=== PATIENT | female | born 1960 | race Caucasian/White ===

== ENCOUNTER 2018-09-24 15:17 | Inpatient (IN) | payer OTHER ==
[2018-09-24 18:04] VITALS: BMI 28.3
--- NOTE | 2018-09-24 18:49 | HP ---
CIWA Score Nausea/Vomitin-No Nausea/No Vomiting Muscle Tremors: 3 Anxiety: 6 Agitation: 4-Moderately Restless Paroxysmal Sweats: No Perspiration Orientation: 1-Uncertain about Date Tacttile Disturbances: 0-None Auditory Disturbances: 0-None Visual Disturbances: 3-Moderate Sensitivity Headache: 3-Moderate CIWA-Ar Total Score: 20 - Admission Criteria OASAS Guidelines: Admission for Medically Managed Detox: Requires at least one of the followin. CIWA greater than 12 2. Seizures within the past 24 hours 3. Delirium tremens within the past 24 hours 4. Hallucinations within the past 24 hours 5. Acute intervention needed for co occurring medical disorder 6. Acute intervention needed for co occurring psychiatric disorder 7. Severe withdrawal that cannot be handled at a lower level of care (continued vomiting, continued diarrhea, abnormal vital signs) requiring intravenous medication and/or fluids 8. Patient presents the following: CIWA greater than 12 Admission Criteria Met: Admission criteria met Admission ROS [facility] - [facility] Allergies/Adverse Reactions: Allergies Allergy/AdvReac Type Severity Reaction Status Date / Time No Known Allergies Allergy Verified 09/24/18 19:08 History of Present Illness: patient here for etoh detox , poor historian due to intoxication , JADEN 0.314 , reports that she had " a "mini-stroke " 2 years ago 2/2 HTN " my doctor won't give me medicine because he doesn't think I have high blood pressure " , reprots she tried to go to [facility] for assistance and was turned down , reports homelessness x 10 years, moved from [facility] to [place] 3 years ago in order to help care for her father . Patient reports PTSD does not wish to discuss further , states she has 2 children , " one is buried in [facility] and one is here , she's having a baby in October " Patient reports she was at [facility] psychiatric mann x 2 days , cannot specify when . Currently denies SI / HI / plan . Reports spinal stenosis , seasonal allergies . JADEN 0.200 does not recall having ABC done prior ( 0.314 at time of registration ) patient refused to answer further questions states " why am I sitting here ?" and went out of office after assessment. Exam Limitations: Clinical Condition, Intoxication, Altered Mental Status - Ebola screening Have you traveled outside of the country in the last 21 days: No Have you had contact with anyone from an Ebola affected area: No Have you been sick,other than usual withdrawal symptoms: No Do you have a fever: No - Review of Systems Constitutional: See HPI EENT: reports: Blurred Vision, Other (reading glasses , denies dysphagia) Respiratory: reports: Cough, Other (reports allergies) Cardiac: reports: No Symptoms Reported GI: reports: No Symptoms Reported : reports: No Symptoms Reported Musculoskeletal: reports: Back Pain Integumentary: reports: No Symptoms Reported Neuro: reports: See HPI Endocrine: reports: No Symptoms Reported Psychiatric: reports: Orientated x3, Agitated, Anxious Patient History - Smoking Cessation Smoking history: Unknown if ever smoked Initiated information on smoking cessation: No - Substances Abused Alcohol Route: Oral Frequency: Daily Amount used: LIQUOR- 1 PINT Age of first use: 19 Date of Last Use: 09/24/18 Family Disease History - Family Disease History Family Disease History: Diabetes: Mother (maternal side ), CA: Mother, Other: Father (emphysema, copd ), Sister (2 sisters " who cares , they're idiots" ) Admission Physical Exam [facility] - Vital Signs Vital Signs: Vital Signs - 24 hr 09/24/18 18:02 Temperature 98.6 F Pulse Rate 88 Respiratory 18 Rate Blood Pressure 122/76 - Physical General Appearance: Yes: Disheveled, Severe Distress, Alcohol on Breath, Intoxicated, Tremorous, Irritable, Anxious HEENTM: Yes: EOMI, Normocephalic, Normal Voice Respiratory: Yes: Chest Non-Tender, Lungs Clear, Normal Breath Sounds Neck: Yes: No masses,lesions,Nodules, Trachea in good position Breast: Yes: Breast Exam Deferred Cardiology: Yes: Regular Rhythm, Regular Rate, S1, S2 Abdominal: Yes: Non Tender, Soft Genitourinary: Yes: Within Normal Limits Musculoskeletal: Yes: Other (staggering gait) Extremities: Yes: Tremors Neurological: Yes: Confused, Disoriented, Depressed Affect Integumentary: Yes: Erythema - Diagnostic (1) Alcohol intoxication Current Visit: Yes Status: Acute Qualifiers: Complication of substance-induced condition: with unspecified complication Qualified Code(s): F10.929 - Alcohol use, unspecified with intoxication, unspecified S Breath Alcohol Content Breath Alcohol Content: 0.314 Urine Drug Screen - Results Drug Screen Negative: Yes
[2018-09-24] MEDS ORDERED: chlordiazePOXIDE HCL 25 MG CAPSULE PO PRN ×2 (19:23→21:41)
[2018-09-24] MEDS ORDERED: MAG HYDROX/AL HYDROX/SIMETH 30 ML UNIT-DOSE CUP PO PRN (19:24)
[2018-09-24] MEDS ORDERED: guaiFENesin/D-METHORPHAN HB 10 ML UNIT-DOSE CUPS PO PRN (19:24)
[2018-09-24] MEDS ORDERED: MAGNESIUM HYDROX 2400MG/30ML ORAL SUSPENSION 30 ML CUP PO PRN (19:24)
[2018-09-24] MEDS ORDERED: MAGNESIUM CITRATE 300 ML BOTTLE PO PRN (19:24)
[2018-09-24] MEDS ORDERED: P-EPHED 60MG/TRIPROLIDI 2.5MG TABLET PO PRN (19:24)
[2018-09-24] MEDS ORDERED: ACETAMINOPHEN 325 MG TABLET (FP) PO PRN (19:24)
[2018-09-24] MEDS ORDERED: MENTHOL/PHENOL 1 EACH UD MM PRN (19:24)
[2018-09-24] MEDS ORDERED: IBUPROFEN 400 MG TABLET (FP) PO PRN (19:24)
[2018-09-24] MEDS ORDERED: MELATONIN 5 MG TABLETS PO PRN (22:00)
[2018-09-24] MEDS: chlordiazePOXIDE HCL 25 MG CAPSULE PO SCH (22:19)
[2018-09-24] MEDS: THIAMINE HCL 100 MG TABLET (FP) PO SCH (22:23)
[2018-09-24] MEDS ORDERED: chlordiazePOXIDE HCL 25 MG CAPSULE PO SCH (23:00)
[2018-09-25] MEDS: chlordiazePOXIDE HCL 25 MG CAPSULE PO SCH ×4 (06:15→22:32)
[2018-09-25] MEDS: PRENATAL VITAMINS W/ FOLIC ACID TABLET (FP) PO SCH (10:37)
[2018-09-25] MEDS: ASPIRIN 81 MG CHEWABLE TABLETS PO SCH (13:32)
[2018-09-25] MEDS: NICOTINE 14 MG/24 HOURS TOPICAL PATCH TD SCH (13:32)
--- NOTE | 2018-09-25 16:10 | PN ---
S CIWA - CIWA Score Nausea/Vomitin-No Nausea/No Vomiting Muscle Tremors: None Anxiety: 5 Agitation: 2 Paroxysmal Sweats: No Perspiration Orientation: 4Disoriented Place/Person Tacttile Disturbances: 2-Mild Itch/Numbness/Burn Auditory Disturbances: 0-None Visual Disturbances: 2-Mild Sensitivity Headache: 0-None Present CIWA-Ar Total Score: 15 BHS Progress Note (SOAP) Subjective: Anxious, Body Aches. Objective: PATIENT A & O X 1 (UNCERTAIN ABOUT CURRENT DAY / DATE AND ABOUT CURRENT LOCATION ). PATIENT OBSERVED AMBULATING ON UNIT. IN NO ACUTE DISTRESS. 09/25/18 16:08 Vital Signs Temperature 98.4 F 09/25/18 13:52 Pulse Rate 80 09/25/18 16:00 Respiratory Rate 18 09/25/18 16:00 Blood Pressure 136/82 09/25/18 13:52 O2 Sat by Pulse Oximetry (%) ADMISSION LAB RESULTS PENDING. 09/25/18 16:09 Assessment: 09/25/18 16:09 WITHDRAWAL SYMPTOMS. Plan: CONTINUE DETOX. INCREASE DAILY PO FLUID INTAKE.
[2018-09-25] MEDS: ATORVASTATIN CA 10 MG TABLET (FP) PO SCH (22:32)
[2018-09-25] MEDS: THIAMINE HCL 100 MG TABLET (FP) PO SCH (22:32)
[2018-09-25] MEDS ORDERED: chlordiazePOXIDE HCL 25 MG CAPSULE PO SCH (23:00)
[2018-09-26] MEDS: chlordiazePOXIDE HCL 25 MG CAPSULE PO SCH ×3 (05:33→17:07)
[2018-09-26] MEDS: ASPIRIN 81 MG CHEWABLE TABLETS PO SCH (10:12)
[2018-09-26] MEDS: PRENATAL VITAMINS W/ FOLIC ACID TABLET (FP) PO SCH (10:12)
[2018-09-26] MEDS: NICOTINE 14 MG/24 HOURS TOPICAL PATCH TD SCH (10:12)
--- NOTE | 2018-09-26 17:23 | PN ---
S CIWA - CIWA Score Nausea/Vomitin Muscle Tremors: 4-Moderate,w/Arms Extend Anxiety: 4-Mod. Anxious/Guarded Agitation: 4-Moderately Restless Paroxysmal Sweats: 3 Orientation: 0-Oriented Tacttile Disturbances: 0-None Auditory Disturbances: 0-None Visual Disturbances: 0-None Headache: 0-None Present CIWA-Ar Total Score: 17 BHS Progress Note (SOAP) Subjective: Anxious, restless, interrupted sleep Objective: 09/26/18 17:21 Last Vital Signs Temp Pulse Resp BP Pulse Ox 97.1 F L 105 H 16 147/90 09/26/18 14:25 09/26/18 14:25 09/26/18 14:25 09/26/18 14:25 Admission labs reordered in AM Assessment: 09/26/18 17:22 Withdrawal symptoms Plan: Continue detox Encouraged PO water intake Admission labs reordered in AM
[2018-09-26] MEDS ORDERED: cloNIDine HCL 0.1 MG TABLET PO PRN (17:24)
[2018-09-26] MEDS: ATORVASTATIN CA 10 MG TABLET (FP) PO SCH (22:30)
[2018-09-26] MEDS: THIAMINE HCL 100 MG TABLET (FP) PO SCH (22:30)
[2018-09-26] MEDS: chlordiazePOXIDE 5 MG CAPSULE PO SCH (22:30)
[2018-09-26] MEDS ORDERED: chlordiazePOXIDE 5 MG CAPSULE PO SCH (23:00)
[2018-09-27] MEDS: chlordiazePOXIDE 5 MG CAPSULE PO SCH ×3 (05:46→17:35)
[2018-09-27] MEDS: PRENATAL VITAMINS W/ FOLIC ACID TABLET (FP) PO SCH (10:18)
[2018-09-27] MEDS: ASPIRIN 81 MG CHEWABLE TABLETS PO SCH (10:18)
[2018-09-27] MEDS: NICOTINE 14 MG/24 HOURS TOPICAL PATCH TD SCH (10:19)
[2018-09-27 10:27] LABS: ALBUMIN 3.3 g/dl (3.4-5.0); ALK PHOS 76 U/L (45-117); ANION GAP 7 MMOL/L (8-16); BILIRUBIN,TOTAL 0.6 mg/dL (0.2-1); BLOOD UREA NITROGEN 12 mg/dL (7-18); CALCIUM 8.6 mg/dL (8.5-10.1); CHLORIDE 107 mmol/L (98-107); CO2 29 mmol/L (21-32); CREATININE 0.5 mg/dL (0.55-1.3); GLUCOSE,RANDOM 89 mg/dL (74-106); POTASSIUM 3.6 mmol/L (3.5-5.1); SGOT/AST 46 U/L (15-37); SGPT/ALT 62 U/L (13-61); SODIUM 142 mmol/L (136-145); TOT PROT 5.9 g/dl (6.4-8.2)
[2018-09-27 10:37] LABS: BASO % 1.5 % (0-2.0); EOS % 1.8 % (0-4.5); HEMATOCRIT 41.9 % (32.4-45.2); HEMOGLOBIN 14.5 GM/dL (10.7-15.3); LYMPH % 33.5 % (8-40); MCHC 34.7 g/dl (32.0-36.0); MEAN CELL VOLUME 100.8 fl (80-96); MEAN PLT VOLUME 9.9 fl (7.5-11.1); MONO % 13.7 % (3.8-10.2); NEUT % 49.5 % (42.8-82.8); PLATELET COUNT 176 K/MM3 (134-434); RBC 4.15 M/mm3 (3.60-5.2); RDW 15.1 % (11.6-15.6); WHITE BLOOD COUNT 4.5 K/mm3 (4.0-10.0)
--- NOTE | 2018-09-27 11:05 | PN ---
S Progress Note (SOAP) Subjective: feeling better less tremor little sweating social with peers in day room Objective: 09/27/18 11:04 Vital Signs Temperature 97.4 F L 09/27/18 09:31 Pulse Rate 63 09/27/18 09:31 Respiratory Rate 18 09/27/18 09:31 Blood Pressure 122/60 09/27/18 09:31 O2 Sat by Pulse Oximetry (%) Laboratory Last Values WBC 4.5 K/mm3 (4.0-10.0) 09/27/18 08:15 RBC 4.15 M/mm3 (3.60-5.2) 09/27/18 08:15 Hgb 14.5 GM/dL (10.7-15.3) 09/27/18 08:15 Hct 41.9 % (32.4-45.2) 09/27/18 08:15 MCV 100.8 fl (80-96) H 09/27/18 08:15 MCH 35.0 pg (25.7-33.7) H 09/27/18 08:15 MCHC 34.7 g/dl (32.0-36.0) 09/27/18 08:15 RDW 15.1 % (11.6-15.6) 09/27/18 08:15 Plt Count 176 K/MM3 (134-434) 09/27/18 08:15 MPV 9.9 fl (7.5-11.1) 09/27/18 08:15 Absolute Neuts (auto) 2.2 K/mm3 (1.5-8.0) 09/27/18 08:15 Neutrophils % 49.5 % (42.8-82.8) 09/27/18 08:15 Lymphocytes % 33.5 % (8-40) 09/27/18 08:15 Monocytes % 13.7 % (3.8-10.2) H 09/27/18 08:15 Eosinophils % 1.8 % (0-4.5) 09/27/18 08:15 Basophils % 1.5 % (0-2.0) 09/27/18 08:15 Nucleated RBC % 0 % (0-0) 09/27/18 08:15 Sodium 142 mmol/L (136-145) 09/27/18 08:15 Potassium 3.6 mmol/L (3.5-5.1) 09/27/18 08:15 Chloride 107 mmol/L (98-107) 09/27/18 08:15 Carbon Dioxide 29 mmol/L (21-32) 09/27/18 08:15 Anion Gap 7 MMOL/L (8-16) L 09/27/18 08:15 BUN 12 mg/dL (7-18) 09/27/18 08:15 Creatinine 0.5 mg/dL (0.55-1.3) L 09/27/18 08:15 Creat Clearance w eGFR > 60 (>60) 09/27/18 08:15 Random Glucose 89 mg/dL (74-106) 09/27/18 08:15 Calcium 8.6 mg/dL (8.5-10.1) 09/27/18 08:15 Total Bilirubin 0.6 mg/dL (0.2-1) 09/27/18 08:15 AST 46 U/L (15-37) H 09/27/18 08:15 ALT 62 U/L (13-61) H 09/27/18 08:15 Alkaline Phosphatase 76 U/L (45-117) 09/27/18 08:15 Total Protein 5.9 g/dl (6.4-8.2) L 09/27/18 08:15 Albumin 3.3 g/dl (3.4-5.0) L 09/27/18 08:15 lab noted Assessment: 09/27/18 11:05 mild withdrawal sx Plan: continue detox
[2018-09-27] MEDS: ATORVASTATIN CA 10 MG TABLET (FP) PO SCH (22:17)
[2018-09-27] MEDS: THIAMINE HCL 100 MG TABLET (FP) PO SCH (22:17)
[2018-09-27] MEDS: chlordiazePOXIDE HCL 10 MG CAPSULE PO SCH (22:18)
[2018-09-27] MEDS ORDERED: chlordiazePOXIDE HCL 10 MG CAPSULE PO SCH (23:00)
[2018-09-28] MEDS: chlordiazePOXIDE HCL 10 MG CAPSULE PO SCH (05:42)
[2018-09-28 06:18] VITALS: BP 144/81; PULSE 55; TEMP 97
--- NOTE | 2018-09-28 17:01 | DS ---
[facility] Detox Discharge Summary Admission Date: 09/24/18 Discharge Date: 09/28/18 - History Present History: Alcohol Dependence Additional Comments: PATIENT OFFERED REHAB BED AT [facility] ([place], [place]). PATIENT INITIALLY EXPRESSED INTEREST IN GOING TO [facility] FOR AFTERCARE. HOWEVER, PATIENT LATER DECLINED TO ACCEPT BED AND ELECTING TO LEAVE DETOX UNIT AND PURSUE AFTERCARE OPTIONS ON HER OWN. PATIENT WAS DISCHARGED FROM DETOX UNIT IN STABLE MEDICAL CONDITION. Pertinent Past History: Hypercholesterolemia, History of "Mini-Stroke" - Physical Exam Results Vital Signs: Vital Signs Temperature 97 F L 09/28/18 06:18 Pulse Rate 55 L 09/28/18 06:18 Respiratory Rate 16 09/28/18 06:18 Blood Pressure 144/81 09/28/18 06:18 O2 Sat by Pulse Oximetry (%) Pertinent Admission Physical Exam Findings: WITHDRAWAL SYMPTOMS. Laboratory Tests 09/27/18 09/27/18 09/27/18 08:15 08:15 08:15 WBC 4.5 RBC 4.15 Hgb 14.5 Hct 41.9 MCV 100.8 H MCH 35.0 H MCHC 34.7 RDW 15.1 Plt Count 176 MPV 9.9 Absolute Neuts (auto) 2.2 Neutrophils % 49.5 Lymphocytes % 33.5 Monocytes % 13.7 H Eosinophils % 1.8 Basophils % 1.5 Nucleated RBC % 0 Sodium 142 Potassium 3.6 Chloride 107 Carbon Dioxide 29 Anion Gap 7 L BUN 12 Creatinine 0.5 L Creat Clearance w eGFR > 60 Random Glucose 89 Calcium 8.6 Total Bilirubin 0.6 AST 46 H ALT 62 H Alkaline Phosphatase 76 Total Protein 5.9 L Albumin 3.3 L RPR Titer Nonreactive LABS NOTED. - Treatment Hospital Course: Detox Protocol Followed, Detoxed Safely, Responded well, Discharged Condition Good Patient has Accepted a Rehab Referral to: PATIENT DECLINED AFTERCARE REFERRAL. - Medication Discharge Medications: Ambulatory Orders Aspirin [ASA -] 81 mg PO ONCE 09/25/18 Simvastatin [Zocor -] 10 mg PO HS #14 tablet 09/27/18 - Diagnosis (1) Alcohol intoxication Status: Acute Qualifiers: Complication of substance-induced condition: with unspecified complication Qualified Code(s): F10.929 - Alcohol use, unspecified with intoxication, unspecified - AMA Did Patient Leave Against Medical Advice: No
== END 2018-09-28 11:45 | disposition home or self-care (01) | DRG 775 ==
LOC: YASAS 15:17 → Y3N 20:39
PROC: HZ2ZZZZ Detoxification Services for Substance Abuse Treatment (ICD-10-PCS; principal; 2018-09-24)
DX: F10.230 Alcohol dependence with withdrawal, uncomplicated (principal); I10 Essential (primary) hypertension; E78.00 Pure hypercholesterolemia, unspecified; M48.00 Spinal stenosis, site unspecified; Z86.73 Personal history of transient ischemic attack (TIA), and cerebral infarction without residual deficits; Z59.0 Homelessness
CPT/HCPCS: 36415; 80053; 85025; 86593